=== PATIENT | female | born 1995 | race African-American/Black ===

== ENCOUNTER 2016-05-06 17:09 | Emergency (ER) | payer BC, OTHER ==
[~2016-05-06] VITALS: Ht 167.6 cm; Wt 97.5 kg
[2016-05-06 18:51] VITALS: BP 114/67
[2016-05-06 18:53] LABS: Urine Bilirubin Negative (Negative); Urine Blood Negative /uL (Negative); Urine Color Yellow (Yellow); Urine Glucose Normal (Normal); Urine Mucus FEW (None Seen); Urine Nitrite Negative (Negative); Urine RBC 1 /hpf (0 - 4); Urine Squamous Epithelial Cell FEW /hpf (<5); Urine Urobilinogen Normal (Negative)
[2016-05-06 18:55] LABS: Urine Ketone 1+ (Negative)
[2016-05-06 19:24] LABS: Basophils # (auto) 0.1 uL; Basophils % (auto) 1.1 % (0.0-2.0); DEFINITIVE VIEW TRANSMISSION; Eosinophils # (auto) 0 uL; Eosinophils % (auto) 0.7 % (0.0-7.0); Hematocrit 41.2 % (36.0-46.0); Hemoglobin 13.1 g/dL (12.2-16.2); Lymphocytes # (auto) 1.3 uL; Lymphocytes % (auto) 24.7 % (10.0-50.0); Mean Corpuscular Hemoglobin 24.1 pg (28.0-32.0); Mean Corpuscular Hgb Conc. 31.7 g/dL (32.0-36.0); Mean Corpuscular Volume 76.1 fL (80.0-100.0); Mean Platelet Volume 12.8 fL (7.4-10.4); Monocytes # (auto) 0.3 uL; Monocytes % (auto) 4.7 % (0.0-12.0); Neutrophils # (auto) 3.7 uL; Neutrophils % (auto) 68.8 % (37.0-80.0); Platelet Count (auto) 273 10^3/uL (140-450); Red Cell Distribution Width 17.1 % (11.6-16.0); SUSPECT VIEW TRANSMISSION; White Blood Cell 5.4 10^3/uL (4.4-10.8)
[2016-05-06 19:28] LABS: BUN/Creatinine Ratio 12.9; Calcium 8.7 mg/dL (8.5-10.1); Potassium 3.8 mmol/L (3.5-5.1)
[2016-05-06 19:31] LABS: Bilirubin, Total 0.4 mg/dL (0.2-1.0); Total Protein 7.7 g/dL (6.4-8.2)
[2016-05-06 19:41] LABS: INR 1.06 (0.9-1.15); Prothrombin Time 10.9 sec (9.37-12.3)
== END 2016-05-06 21:37 | disposition home or self-care (01) ==
LOC: ER 17:14
DX: F25.9 Schizoaffective disorder, unspecified (principal)
CPT/HCPCS: 36415; 80053; 80320; 80329; 81001; 85025; 85610; 99284; G0434

== ENCOUNTER → 2016-06-16 | Outpatient (CLI) | payer BC ==
[2016-06-16 10:40] LABS: Basophils # (auto) 0.1 uL; DEFINITIVE VIEW TRANSMISSION; Eosinophils # (auto) 0.1 uL; Hematocrit 38.8 % (36.0-46.0); Hemoglobin 12.8 g/dL (12.2-16.2); Lymphocytes # (auto) 1.3 uL; Lymphocytes % (auto) 25.6 % (10.0-50.0); Mean Corpuscular Hemoglobin 24.6 pg (28.0-32.0); Mean Corpuscular Hgb Conc. 32.9 g/dL (32.0-36.0); Mean Corpuscular Volume 74.8 fL (80.0-100.0); Mean Platelet Volume 11.7 fL (7.4-10.4); Monocytes # (auto) 0.3 uL; Monocytes % (auto) 6.2 % (0.0-12.0); Neutrophils # (auto) 3.2 uL; Neutrophils % (auto) 65.2 % (37.0-80.0); Platelet Count (auto) 273 10^3/uL (140-450); Red Cell Distribution Width 16.7 % (11.6-16.0); SUSPECT VIEW TRANSMISSION
== END | disposition home or self-care (01) ==
LOC: LAB 09:47
PROVIDERS: ATTEND Specialist
DX: Z34.00 Encounter for supervision of normal first pregnancy, unspecified trimester (principal); Z31.430 Encounter of female for testing for genetic disease carrier status for procreative management; Z11.3 Encounter for screening for infections with a predominantly sexual mode of transmission
CPT/HCPCS: 36415; 83036; 85025; 86762; 86850; 86900; 86901; 87086; 87340

== ENCOUNTER → 2016-12-11 | Outpatient (CLI) | payer BC ==
[2016-12-11 09:14] LABS: Basophils # (auto) 0 uL; Basophils % (auto) 0.4 % (0.0-2.0); Eosinophils # (auto) 0.1 uL; Eosinophils % (auto) 1.2 % (0.0-7.0); Hematocrit 42.1 % (36.0-46.0); Hemoglobin 14.2 g/dL (12.2-16.2); Lymphocytes # (auto) 1.3 uL; Lymphocytes % (auto) 19.3 % (10.0-50.0); Mean Corpuscular Hgb Conc. 33.8 g/dL (32.0-36.0); Mean Corpuscular Volume 85.8 fL (80.0-100.0); Monocytes # (auto) 0.4 uL; Monocytes % (auto) 6.5 % (0.0-12.0); Neutrophils # (auto) 4.8 uL; Neutrophils % (auto) 72.6 % (37.0-80.0); Nucleated Red Blood Cells % 0.2 %; Red Cell Distribution Width 14.8 % (11.8-14.3); White Blood Cell 6.6 10^3/uL (4.4-10.8)
[2016-12-11 09:17] LABS: Platelet Count (auto) 155 10^3/uL (140-450)
== END | disposition home or self-care (01) ==
LOC: LAB 08:51
PROVIDERS: ATTEND Specialist
DX: O24.419 Gestational diabetes mellitus in pregnancy, unspecified control (principal); Z3A.28 28 weeks gestation of pregnancy
CPT/HCPCS: 36415; 82951; 85025

== ENCOUNTER 2016-12-18 11:05 | Observation (INO) | payer BC ==
[2016-12-18] MEDS ORDERED: PREN-129 OR (16:01)
== END 2016-12-18 13:15 | disposition home or self-care (01) | DRG 781 ==
LOC: LDRP 11:05
PROVIDERS: ADMIT Obstetrics & Gynecology; ATTEND Obstetrics & Gynecology
DX: O21.2 Late vomiting of pregnancy (principal); E86.0 Dehydration; O26.893 Other specified pregnancy related conditions, third trimester; R04.0 Epistaxis; R19.7 Diarrhea, unspecified; R10.9 Unspecified abdominal pain; Z3A.33 33 weeks gestation of pregnancy
CPT/HCPCS: 59025; 81002; 82948; 82962; G0378

== ENCOUNTER → 2016-12-31 | Outpatient (CLI) | payer BC ==
[~2016-12-31] MED LIST: PREN-129 OR
[2016-12-31 12:03] LABS: Basophils # (auto) 0 uL; Basophils % (auto) 0.5 % (0.0-2.0); Eosinophils # (auto) 0 uL; Eosinophils % (auto) 0.5 % (0.0-7.0); Hematocrit 41.6 % (36.0-46.0); Hemoglobin 14.1 g/dL (12.2-16.2); Mean Corpuscular Hemoglobin 28.8 pg (28.0-32.0); Mean Corpuscular Hgb Conc. 33.9 g/dL (32.0-36.0); Mean Platelet Volume 11.1 fL (6.9-10.8); Monocytes # (auto) 0.4 uL; Monocytes % (auto) 6.7 % (0.0-12.0); Neutrophils % (auto) 77.3 % (37.0-80.0); Platelet Count (auto) 182 10^3/uL (140-450); Red Cell Distribution Width 14.8 % (11.8-14.3); White Blood Cell 6.5 10^3/uL (4.4-10.8)
== END | disposition home or self-care (01) ==
LOC: LAB 11:20
PROVIDERS: ATTEND Specialist
DX: O23.599 Infection of other part of genital tract in pregnancy, unspecified trimester (principal); Z3A.00 Weeks of gestation of pregnancy not specified
CPT/HCPCS: 36415; 85025; 86592; 87081

== ENCOUNTER 2017-02-05 14:20 | Observation (INO) | payer BC | END 2017-02-05 17:25 | disposition home or self-care (01) | DRG 781 | LOC: LDRP 14:20 | PROVIDERS: ADMIT Obstetrics & Gynecology; ATTEND Obstetrics & Gynecology | DX: O24.419 Gestational diabetes mellitus in pregnancy, unspecified control (principal); O48.0 Post-term pregnancy; Z3A.40 40 weeks gestation of pregnancy | CPT/HCPCS: 59025; 76818; 81002; 82962; G0378 ==

== ENCOUNTER 2017-02-07 07:55 | Inpatient (IN) | payer BC ==
[~2017-02-07] VITALS: Ht 167.6 cm; Wt 111.1 kg
[2017-02-07] MEDS ORDERED: CARBOPROST TROMETHAMINE 250 MCG/1ML VIAL IM PRN (09:30)
[2017-02-07] MEDS ORDERED: LIDOCAINE 2%HCL (LOCAL ANESTH.) INJ 20ML MDV IJ ONE (09:30)
[2017-02-07] MEDS ORDERED: METHYLERGONOVINE MALEATE 0.2 MG/ML AMP IM PRN (09:30)
[2017-02-07] MEDS ORDERED: DERMOPLAST 60ML BOTTLE TOP PRN (09:30)
[2017-02-07] MEDS ORDERED: PHISODERM TOP SOLN 240ML BTL TOP PRN (09:30)
[2017-02-07] MEDS: LACTATED RINGER'S 1,000 ML IV SCH ×2 (09:30→21:50)
[2017-02-07] MEDS ORDERED: WITCH HAZEL-GLYCERIN PAD TOP PRN (09:30)
[2017-02-07] MEDS ORDERED: NALBUPHINE HCL 10 MG/1ml INJECTION IV PRN (09:30)
[2017-02-07] MEDS ORDERED: QUET25TA37 PO (09:41)
[2017-02-07] MEDS ORDERED: RISP3TAB41 PO (09:43)
[2017-02-07 10:14] LABS: Basophils # (auto) 0 uL; Basophils % (auto) 0.6 % (0.0-2.0); Eosinophils # (auto) 0.1 uL; Eosinophils % (auto) 1.1 % (0.0-7.0); Hematocrit 39.7 % (36.0-46.0); Hemoglobin 13.4 g/dL (12.2-16.2); Mean Corpuscular Hemoglobin 28.5 pg (28.0-32.0); Mean Corpuscular Hgb Conc. 33.7 g/dL (32.0-36.0); Mean Corpuscular Volume 84.7 fL (80.0-100.0); Monocytes # (auto) 0.3 uL; Monocytes % (auto) 4.7 % (0.0-12.0); Neutrophils % (auto) 74.6 % (37.0-80.0); Platelet Count (auto) 139 10^3/uL (140-450); Red Cell Distribution Width 14.6 % (11.8-14.3); White Blood Cell 5.4 10^3/uL (4.4-10.8)
[2017-02-07 10:28] LABS: INR 0.9 (0.9-1.15); Partial Thromboplastin Time 27.8 sec (22.64-33.71); Prothrombin Time 9.8 sec (9.37-12.3)
[2017-02-07 10:34] LABS: Albumin 2.6 g/dL (3.4-5.0); Bilirubin, Total 0.4 mg/dL (0.2-1.0); Calcium 8.6 mg/dL (8.5-10.1); Potassium 3.8 mmol/L (3.5-5.1); Total Protein 6.2 g/dL (6.4-8.2)
[2017-02-07] MEDS: risperiDONE 1 MG TAB PO SCH (21:50)
[2017-02-07] MEDS ORDERED: QUEtiapine FUMARATE 25 MG TAB PO SCH (22:00)
[2017-02-08] VITALS (9 sets, daily range): BP systolic 111–139; BP diastolic 51–83
[2017-02-08] MEDS ORDERED: LACT. RINGERS/OXYTOCIN 20UNITS 1,000 ML IV ONE (05:38)
[2017-02-08] MEDS: LACTATED RINGER'S 1,000 ML IV SCH ×3 (06:05→17:21)
[2017-02-08] MEDS ORDERED: LACT. RINGERS/OXYTOCIN 20UNITS 1,000 ML IV SCH (06:08)
[2017-02-08] MEDS ORDERED: TERBUTALINE SULFATE 1 MG/ML 1ML VIAL SC ONE (06:15)
[2017-02-08] MEDS ORDERED: QUET50TA PO (06:43)
[2017-02-08] MEDS ORDERED: PHENYLEPHRINE HCL 10 MG/ML VL ONE (12:45)
[2017-02-08] MEDS ORDERED: MORPHINE SULF(PF) 0.5MG/ML 10ML VIAL ONE (12:45)
[2017-02-08] MEDS ORDERED: ePHEDrine SULFATE 50 MG/ML AMP ONE (12:46)
[2017-02-08] MEDS ORDERED: OXYTOCIN 10 UNIT/ML 10ML VIAL ONE (12:48)
[2017-02-08] MEDS ORDERED: SODIUM CHLORIDE LOCK 10 ML ONE (12:49)
[2017-02-08] MEDS ORDERED: ceFAZolin 1GM VL ONE (12:49)
[2017-02-08] MEDS ORDERED: METOCLOPRAMIDE HCL 5MG/ml INJ 2ml VIAL ONE (13:29)
[2017-02-08] MEDS ORDERED: ONDANSETRON HCL 4 MG/2 ML VIAL ONE (13:38)
[2017-02-08] MEDS ORDERED: PROMETHAZINE HCL 25 MG/ML 1ML ONE (13:57)
[2017-02-08] MEDS ORDERED: LACTATED RINGER'S 1,000 ML IV SCH (14:03)
[2017-02-08] MEDS ORDERED: ceFAZolin 1GM/50ML 50 ML IV SCH (14:15)
[2017-02-08] MEDS ORDERED: HYDROmorphone HCL 2 MG/ML VL IV PRN (14:15)
[2017-02-08] MEDS ORDERED: ONDANSETRON HCL 4 MG/2 ML VIAL IV PRN (14:15)
[2017-02-08] MEDS ORDERED: PROMETHAZINE HCL 25 MG/ML 1ML IV ONE (14:45)
[2017-02-08 17:05] LABS: Urine Bilirubin Negative (Negative); Urine Blood 2+ /uL (Negative); Urine Color Yellow (Yellow); Urine Glucose Normal (Normal); Urine Ketone 3+ (Negative); Urine Mucus FEW (None Seen); Urine Nitrite Negative (Negative); Urine RBC 103 /hpf (0 - 4); Urine Urobilinogen Normal (Negative); Urine pH 6.5 (5.0-8.0)
[2017-02-08] MEDS: KETOROLAC TROMETH 30 MG/ML 1ML VIAL IV SCH ×2 (17:49→23:52)
[2017-02-08] MEDS: ceFAZolin 1GM/50ML 50 ML IV SCH (22:01)
[2017-02-08] MEDS: risperiDONE 1 MG TAB PO SCH (22:02)
[2017-02-08] MEDS: QUEtiapine FUMARATE 25 MG TAB PO SCH (22:06)
[2017-02-09 04:00] VITALS: BP 102/58
[2017-02-09] MEDS: KETOROLAC TROMETH 30 MG/ML 1ML VIAL IV SCH (05:26)
[2017-02-09] MEDS: ceFAZolin 1GM/50ML 50 ML IV SCH ×2 (05:26→13:52)
[2017-02-09] MEDS: LACTATED RINGER'S 1,000 ML IV SCH (05:26)
[2017-02-09 06:47] LABS: Basophils # (auto) 0 uL; Basophils % (auto) 0.4 % (0.0-2.0); Eosinophils # (auto) 0 uL; Eosinophils % (auto) 0.6 % (0.0-7.0); Hematocrit 33.3 % (36.0-46.0); Hemoglobin 11.5 g/dL (12.2-16.2); Lymphocytes # (auto) 1.1 uL; Lymphocytes % (auto) 16.7 % (10.0-50.0); Mean Corpuscular Hemoglobin 29.1 pg (28.0-32.0); Mean Corpuscular Hgb Conc. 34.6 g/dL (32.0-36.0); Mean Corpuscular Volume 84.1 fL (80.0-100.0); Mean Platelet Volume 11.1 fL (6.9-10.8); Monocytes # (auto) 0.6 uL; Monocytes % (auto) 8.4 % (0.0-12.0); Neutrophils % (auto) 73.9 % (37.0-80.0); Platelet Count (auto) 114 10^3/uL (140-450); Red Cell Distribution Width 14.4 % (11.8-14.3); White Blood Cell 6.7 10^3/uL (4.4-10.8)
[2017-02-09 08:00] VITALS: BP 116/63
[2017-02-09] MEDS ORDERED: HYDROcodone-ACET 5/325MG TAB PO PRN (09:00)
[2017-02-09] MEDS ORDERED: SIMETHICONE 80 MG CHEWABLE TABLET PO PRN (09:00)
[2017-02-09] MEDS: DOCUSATE SOD 100 MG CAP PO SCH ×2 (10:18→22:03)
[2017-02-09 12:00] VITALS: BP 115/69
[2017-02-09 12:20] VITALS: BP 126/79
[2017-02-09] MEDS ORDERED: IBUPROFEN 800 MG TAB PO ONE (13:41)
[2017-02-09] MEDS: IBUPROFEN 800 MG TAB PO PRN ×2 (13:50→22:06)
[2017-02-09 16:00] VITALS: BP 105/51
[2017-02-09] MEDS: HYDROcodone-ACET 5/325MG TAB PO PRN ×2 (16:07→20:10)
[2017-02-09 19:34] VITALS: BP 120/62
[2017-02-09] MEDS ORDERED: risperiDONE 1 MG TAB PO SCH (22:00)
[2017-02-09] MEDS: QUEtiapine FUMARATE 25 MG TAB PO SCH (22:03)
[2017-02-10] VITALS: BP 136/75
[2017-02-10 04:15] VITALS: BP 125/53
[2017-02-10] MEDS: HYDROcodone-ACET 5/325MG TAB PO PRN (04:15)
[2017-02-10 08:00] VITALS: BP 128/71
[2017-02-10] MEDS: IBUPROFEN 800 MG TAB PO PRN (08:56)
[2017-02-10] MEDS: DOCUSATE SOD 100 MG CAP PO SCH (10:17)
[2017-02-10 12:00] VITALS: BP 139/76
== END 2017-02-10 14:20 | disposition home or self-care (01) | DRG 766 ==
LOC: LDRP 07:55
PROVIDERS: ADMIT Specialist; ATTEND Specialist
PROC: 10D00Z1 Extraction of Products of Conception, Low, Open Approach (ICD-10-PCS; principal; 2017-02-07)
DX: O61.9 Failed induction of labor, unspecified (principal); F20.9 Schizophrenia, unspecified; O62.0 Primary inadequate contractions; O99.344 Other mental disorders complicating childbirth; Z3A.40 40 weeks gestation of pregnancy; Z37.0 Single live birth; Z86.32 Personal history of gestational diabetes; O99.214 Obesity complicating childbirth; E66.9 Obesity, unspecified; O99.62 Diseases of the digestive system complicating childbirth; K21.9 Gastro-esophageal reflux disease without esophagitis; Z68.39 Body mass index [BMI] 39.0-39.9, adult
CPT/HCPCS: 36415; 51702; 59025; 80053; 80307; 81001; 81002; 82948; 82962; 85025; 85610; 85730; 86850; 86900; 86901; 96361; 96365; 96366; 96374; 96375; J0690; J1885; J2405; J2590

== ENCOUNTER 2019-02-14 21:00 | Emergency (ER) | payer BC, MEDICAID ==
[~2019-02-14] VITALS: Ht 167.6 cm; Wt 97.5 kg
[~2019-02-14 21:00] MED LIST changes: +QUET50TA PO; +RISP3TAB41 PO
[2019-02-14 21:45] VITALS: BP 127/90
[2019-02-15 00:43] LABS: Basophils # (auto) 0.1 uL; Basophils % (auto) 0.7 % (0.0-2.0); Eosinophils # (auto) 0.1 uL; Eosinophils % (auto) 1.3 % (0.0-7.0); Hematocrit 41.6 % (36.0-46.0); Hemoglobin 13.9 g/dL (12.2-16.2); Lymphocytes # (auto) 2.2 uL; Lymphocytes % (auto) 26.1 % (10.0-50.0); Mean Corpuscular Hemoglobin 28.3 pg (28.0-32.0); Mean Corpuscular Hgb Conc. 33.5 g/dL (32.0-36.0); Mean Corpuscular Volume 84.6 fL (80.0-100.0); Monocytes # (auto) 0.6 uL; Monocytes % (auto) 7.5 % (0.0-12.0); Neutrophils # (auto) 5.3 uL; Neutrophils % (auto) 64.4 % (37.0-80.0); Nucleated Red Blood Cells % 0.3 %; Platelet Count (auto) 274 10^3/uL (140-450); Red Blood Cells 4.91 10^6/uL (4.0-5.20); White Blood Cell 8.2 10^3/uL (4.4-10.8)
[2019-02-15 00:59] LABS: Urine Bacteria FEW /hpf (None Seen); Urine Blood Negative /uL (Negative); Urine Pregnacy Test Negative (Negative); Urine Specific Gravity 1.013 (1.001-1.035); Urine WBC 1 /hpf (0 - 5)
[2019-02-15 01:00] LABS: Alcohol, Urine < 3.0 mg/dL (0-5); Amphetamine Screen, Urine NEGATIVE (NEGATIVE); Barbiturate Scree,Urine NEGATIVE (NEGATIVE); Benzodiazephine Screen, Urine NEGATIVE (NEGATIVE); Cannabinoid Screen, Urine NEGATIVE (NEGATIVE); Cocaine Screen, Urine NEGATIVE (NEGATIVE); Opiate Scree,Urine NEGATIVE (NEGATIVE); Phencyclidine Screen, Urine NEGATIVE (NEGATIVE)
[2019-02-15 01:01] LABS: Albumin 3.7 g/dL (3.4-5.0); Calcium 9.5 mg/dL (8.5-10.1); Potassium 4.2 mmol/L (3.5-5.1)
[2019-02-15 01:03] LABS: BUN/Creatinine Ratio 23.9
[2019-02-15 01:05] LABS: Bilirubin, Total 0.2 mg/dL (0.2-1.0); Total Protein 7.5 g/dL (6.4-8.2)
[2019-02-15 01:10] LABS: Acetaminophen < 2.0 ug/mL (10-30); Salicylate < 0.2 mg/dL (2.8-20.0)
[2019-02-15] MEDS: diphenhdrAMINE HCL 25 MG CAP PO ONE (01:28)
== END 2019-02-15 05:24 | disposition left against medical advice (07) ==
LOC: EDBD 21:00 → ER 21:03
DX: F25.9 Schizoaffective disorder, unspecified (principal); F32.9 Major depressive disorder, single episode, unspecified
CPT/HCPCS: 36415; 80053; 80307; 80329; 81001; 81025; 85025